=== PATIENT | female | born 2000 | race African-American/Black ===

== ENCOUNTER 2020-04-02 22:36 | Emergency (ER) | payer OTHER ==
[~2020-04-02] VITALS: Ht 157.5 cm; Wt 77.0 kg
[2020-04-02 23:06] VITALS: BP 120/90
== END 2020-04-03 00:13 | disposition home or self-care (01) ==
LOC: ER 22:36
DX: F41.9 Anxiety disorder, unspecified (principal)
CPT/HCPCS: 93005; 99283